=== PATIENT | male | born 1985 | race Caucasian/White ===

== ENCOUNTER 2019-05-31 05:03 | Emergency (ER) | payer SELFPAY ==
[2019-05-31 05:17] VITALS: BP 134/91; PULSE 70; RESP 18; TEMP 36.4; O2SAT 98; BMI 22.3
[2019-05-31 05:28] LABS: Bacteria Urine None Seen; RBC Urine None Seen (0-5/HPF); WBC Urine None Seen (0-5/HPF)
[2019-05-31 05:29] LABS: Appearance Urine UA CLEAR; Bilirubin Urine UA NEGATIVE (NEGATIVE); Color Urine UA YELLOW; Glucose Urine UA NEGATIVE (Negative); Ketones Urine UA NEGATIVE (NEGATIVE); Leukocyte Esterase Urine UA NEGATIVE (NEGATIVE); Nitrite Urine UA NEGATIVE (Negative); Occult Blood Urine UA NEGATIVE (Negative); Protein Urine UA NEGATIVE (Negative); Urobilinogen Urine UA 0.2 E.U./dL (0.2); pH Urine UA 6.5 (4.5-8.0)
[2019-05-31] MEDS: SODIUM CHLORIDE 0.9% 1,000 ML 1000 ML IV (05:35)
[2019-05-31 05:58] LABS: Add Manual Diff / Slide Review NO; Basophils Absolute Auto 100 /uL (0-100); Basophils Percent Auto 0.6 % (0-2); Eosinophils Absolute Auto 200 /uL (0-450); Eosinophils Percent Auto 2.4 % (2-4); Hematocrit 50.3 % (41-53); Hemoglobin 16.8 g/dL (13.5-17.5); Lymphocytes Absolute Auto 1900 /uL (1100-4500); Lymphocytes Percent Auto 21.8 % (25-40); Mean Corpuscular HGB Conc 33.5 % (30-36); Mean Corpuscular Hemoglobin 27.6 PG (26-34); Mean Corpuscular Volume 82.4 fL (80-100); Monocytes Absolute Auto 700 /uL (0-900); Monocytes Percent Auto 8.3 % (3-14); Neutrophils Absolute Auto 5800 /uL (1500-7000); Neutrophils Percent Auto 66.9 % (50-75); Platelet Count 201 X10^3/uL (150-400); Red Blood Cell Count 6.11 X10^6/uL (4.5-5.9); Red Cell Distribution Width 13.9 % (11.6-14.8); White Blood Cell Count 8.7 X10^3/uL (4.5-11.0)
[2019-05-31 06:05] LABS: Blood Urea Nitrogen 15 mg/dL (9-20); Calcium 9.6 mg/dL (8.4-10.2); Carbon Dioxide 26 mmol/L (22-32); Chloride 106 mmol/L (98-107); Estimated Glomerular Filt Rate > 60.0 mL/min (>60); Glucose 117 mg/dL (70-100); HEMOLYSIS 31 (0-50); Potassium 4.3 mmol/L (3.4-5.1); Sodium 141 mmol/L (137-145)
[2019-05-31 06:17] LABS: Culture Indicated Urine Cult Not Indicated; Urine Comments Microscopic Normal
--- NOTE | 2019-05-31 06:31 | ED_ITS ---
HPI - Male Genitourinary General Chief complaint: Urogenital-Male Stated complaint: hurts to pee, back hurts when cough Time Seen by Provider: 05/31/19 05:05 Source: patient Mode of arrival: ambulatory Limitations: no limitations History of Present Illness HPI Narrative: 34-year-old male nonsmoker, nondrinker with history of kidney stones presents with bilateral kidney pain, dysuria, frequency and urgency. He admits to feeling cold and with the chills but denies any measured fever. He states his pain is better with rest and worsens with motion. He denies any radiation of his pain. He denies any trauma or midline discomfort MD Complaint: dysuria Onset (ago): day(s) Duration: constant Location: right flank and left flank Severity: moderate Quality: aching Relieving factors: none Exacerbating factors: movement Reports dysuria Related Data Previous Rx's Medication Instructions Recorded cephalexin [Keflex] 500 mg PO TID 10 Days #30 cap 05/31/19 Allergies Allergy/AdvReac Type Severity Reaction Status Date / Time celecoxib [From Celebrex] Allergy Verified 05/31/19 05:17 Review of Systems Constitutional Denies chills, Denies fever(s), Denies lethargy and Denies weakness Eyes Denies change in vision, Denies eye discharge, Denies irritation and Denies loss of vision ENT Ears, Nose, Mouth, and Throat: Denies change in voice, Denies neck pain and Denies sore throat Cardiovascular Denies chest pain, Denies irregular heart rhythm, Denies lightheadedness, Denies palpitations, Denies dyspnea, Denies dyspnea on exertion and Denies orthopnea Respiratory Denies cough, Denies dyspnea, Denies dyspnea on exertion and Denies wheezing Gastrointestinal Gastrointestinal: Denies abdominal pain, Denies change in bowel habits, Denies diarrhea, Denies nausea and Denies vomiting Genitourinary Denies hematuria, Reports dysuria, Denies flank pain, Reports urinary frequency, Denies urinary incontinence and Reports urinary urgency Musculoskeletal Denies neck pain Integumentary/Breasts Denies pruritus, Denies erythema, Denies rash and Denies wounds Neurologic Denies confusion, Denies loss of vision and Denies weakness Psychiatric Denies anxiety, Denies confusion, Denies depression, Denies homicidal ideation and Denies suicidal ideation Endocrine Denies palpitations Hematologic/Lymphatic Denies easy bruising Allergic/Immunologic Denies wheezing [facility] Social History Smoking Status: Current every day smoker Social History Smoking Status: Current every day smoker Exam Narrative Exam Narrative: GENERAL: 34-year-old male is relatively well appearing and his stated age. He is nontoxic or septic in appearance. HEAD: Atraumatic. Normocephalic. No temporal or scalp tenderness. EYES: Pupils equal round and reactive. Extraocular motions intact. No scleral icterus. No injection or drainage. ENT: Nose without bleeding, purulent drainage or septal hematoma. Throat without erythema, tonsillar hypertrophy or exudate. Uvula midline. Airway patent. NECK: Trachea midline. No JVD or lymphadenopathy. Supple, nontender, no meningeal signs. CARDIOVASCULAR: Regular rate and rhythm without murmurs, gallops, or rubs. RESPIRATORY: Clear to auscultation. Breath sounds equal bilaterally. No wheezes, rales, or rhonchi. GASTROINTESTINAL: Abdomen soft, non-tender, nondistended. No hepato-sp lenomegaly, or palpable masses. No guarding. EXTREMITIES: No clubbing, cyanosis, or edema. No joint tenderness, effusion, or edema noted. BACK: Nontender without deformity or crepitance. No flank tenderness. NEURO: AOx3. SKIN: No rash or erythema. Initial Vital Signs Initial Vital Signs: Vital Signs Temperature 97.5 F L 05/31/19 05:17 Pulse Rate 70 05/31/19 05:17 Respiratory Rate 18 05/31/19 05:17 Blood Pressure 134/91 H 05/31/19 05:17 Pulse Oximetry 98 05/31/19 05:17 Course Orders Ordered: ED Orders 05/31/19 05:20 Urinalysis and Microscopic Stat 05/31/19 05:30 Basic Metabolic Panel Stat Complete Blood Count AUTO DIFF Stat 05/31/19 06:12 Blood Culture Stat Discontinued Medications Sodium Chloride (Normal Saline 0.9%) 1,000 mls @ 1,000 mls/hr IV BOLUS ONE Stop: 05/31/19 06:34 Last Infusion: 05/31/19 06:36 Dose: 0 mls/hr Admin: 05/31/19 05:35 Dose: 1,000 mls/hr Vital Signs - 8 hr 05/31/19 05:17 Temperature 97.5 F L Pulse Rate 70 Respiratory Rate 18 Blood Pressure 134/91 H Pulse Oximetry 98 MDM - Male Genitourinary Lab Data Result diagrams: 05/31/19 05:30 05/31/19 05:30 Lab Results 05/31/19 05/31/19 05/31/19 Range/Units 05:20 05:30 05:30 WBC 8.7 (4.5-11.0) X10^3/uL RBC 6.11 H (4.5-5.9) X10^6/uL Hgb 16.8 (13.5-17.5) g/dL Hct 50.3 (41-53) % MCV 82.4 (80-100) fL MCH 27.6 (26-34) PG MCHC 33.5 (30-36) % RDW 13.9 (11.6-14.8) % Plt Count 201 (150-400) X10^3/uL Neut % (Auto) 66.9 (50-75) % Lymph % (Auto) 21.8 L (25-40) % [place] % (Auto) 8.3 (3-14) % Eos % (Auto) 2.4 (2-4) % Baso % (Auto) 0.6 (0-2) % Neut # (Auto) 5800 (7837-7266) /uL Lymph # (Auto) 1900 (2363-9263) /uL [place] # (Auto) 700 (0-900) /uL Eos # (Auto) 200 (0-450) /uL Baso # (Auto) 100 (0-100) /uL Sodium 141 (137-145) mmol/L Potassium 4.3 (3.4-5.1) mmol/L Chloride 106 (98-107) mmol/L Carbon Dioxide 26 (22-32) mmol/L BUN 15 (9-20) mg/dL Creatinine 1.00 (0.66-1.25) mg/dL Estimated GFR > 60.0 (>60) mL/min BUN/Creatinine Ratio 15.0 (6-22) Glucose 117 H (70-100) mg/dL Calcium 9.6 (8.4-10.2) mg/dL Urine Color Yellow Urine Appearance Clear Urine pH 6.5 (4.5-8.0) Ur Specific [place] 1.020 (1.000-1.035) Urine Protein Negative (Negative) Urine Glucose (UA) Negative (Negative) g/dL Urine Ketones Negative (NEGATIVE) Urine Occult Blood Negative (Negative) Urine Nitrate Negative (Negative) Urine Bilirubin Negative (NEGATIVE) Urine Urobilinogen 0.2 (0.2) E.U./dL Ur Leukocyte Esterase Negative (NEGATIVE) Urine RBC None seen (0-5/HPF) Urine WBC None seen (0-5/HPF) Urine Bacteria None seen (None) Ur Culture Indicated? Cult not indicated Micro UA Comment Microscopic normal MDM Narrative Medical decision making narrative: 34-year-old male with history of kidney stones states this feels quite different. His pain is better with rest and worse with motion. He complains of urinary problems such as dysuria, frequency and urgency. He has subjective fever and chills. He is nonseptic and labs reviewed were reassuring, urine appears clean. His complaint, history and symptoms are very concerning for pyelonephritis. Kidney stones considered but lack of radiation, bilateral presentation, along with reproducible provocation and palliation make this less likely. We did discuss imaging such as CAT scann ed elect to hold off for now. The blood work and urine is very reassuring his symptoms are very concerning for pyelonephritis. Discharge Plan Departure Patient Disposition: Home Clinical Impression: Acute flank pain, Dysuria Instructions: DI for Flank Pain Activity Restrictions/Additional Instructions: *You have been diagnosed with [bilateral flank pain and urinary complaints, highly suspect kidney infection] *What to do: *Take medications as directed *Follow up with your primary care provider in 2-3 days, call for an appointment. Let them know you were seen in the Emergency Department and that we ask that you be seen in follow up *Return to ER if you should have any new, worsening or concerning symptoms Prescriptions: New cephalexin [Keflex] 500 mg capsule 500 mg PO TID 10 Days Qty: 30 RF: 0 Stand Alone Forms: Work Release Note
[2019-05-31 06:46] VITALS: BP 135/95; PULSE 61; RESP 18; TEMP 36.8; O2SAT 99
== END 2019-05-31 06:47 | disposition home or self-care (01) ==
PROVIDERS: Emergency Provider Emergency Medicine
DX: R10.9 Unspecified abdominal pain (principal); R30.0 Dysuria
CPT/HCPCS: 36415; 80048; 81001; 85025; 87040; 96360; 99283